=== PATIENT | female | born 1980 | race Hispanic/Latino ===

== ENCOUNTER 2017-03-16 12:23 | Emergency (ER) | payer SELFPAY | END 2017-03-16 13:11 | disposition home or self-care (01) | LOC: NAV ERS 12:23 | DX: O99.512 Diseases of the respiratory system complicating pregnancy, second trimester (principal); J06.9 Acute upper respiratory infection, unspecified; Z79.2 Long term (current) use of antibiotics; Z3A.22 22 weeks gestation of pregnancy | CPT/HCPCS: 99283 ==